=== PATIENT | male | born 1960 | race Two or more races ===

== ENCOUNTER 2022-03-30 15:18 | Inpatient (IN) | payer OTHER ==
[~2022-03-30] VITALS: Ht 190.5 cm; Wt 70.3 kg
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
--- NOTE | 2022-03-30 15:27 | NUR ---
PEOPLE GREETER AT BEDSIDE
[2022-03-30 15:53] LABS: BASOPHILS % (AUTO) 0.2 % (0.0-2.0); EOSINOPHILS % (AUTO) 0.6 % (0.0-6.0); HEMATOCRIT 34 % (39-51); HEMOGLOBIN 11.4 g/dL (13.5-17.5); LYMPHOCYTES # (AUTO) 1.2 K/uL (0.8-4.8); LYMPHOCYTES % (AUTO) 10.8 % (20.0-44.0); MEAN CORPUSCULAR HGB CONC 33 g/dl (31.0-36.0); MEAN CORPUSCULAR VOLUME 85 fL (80-96); MONOCYTES # (AUTO) 1.2 K/uL (0.1-1.30); MONOCYTES % (AUTO) 10.5 % (2.0-12.0); NEUTROPHILS # (AUTO) 8.7 K/uL (1.8-8.9); NEUTROPHILS % (AUTO) 77.9 % (43.0-81.0); PLATELET COUNT (AUTO) 340 K/uL (150-450); RED BLOOD CELL COUNT(AUTO) 4.05 MIL/uL (4.5-6.0); WHITE BLOOD COUNT (AUTO) 11.1 K/uL (4.3-11.0)
[2022-03-30 16:07] LABS: CALCIUM, SERUM 8.3 mg/dL (8.5-10.1); CARBON DIOXIDE 24 mmol/L (21-32); CHLORIDE 102 mmol/L (98-107); CREATININE 0.9 mg/dL (0.6-1.3); GLUCOSE 198 mg/dL (74-106); POTASSIUM 3.7 mmol/L (3.5-5.1); SODIUM SERUM 137 mmol/L (136-145); UREA NITROGEN, BLOOD 14 mg/dL (7-18)
[2022-03-30 16:33] LABS: BILIRUBIN,DIRECT 0.2 mg/dL (0.0-0.2); BILIRUBIN,TOTAL 0.8 mg/dL (0.2-1.0); TOTAL PROTEIN, SERUM 7.5 g/dL (6.4-8.2)
[2022-03-30] MEDS ORDERED: NITR0.4T48 SL (16:57)
[2022-03-30] MEDS ORDERED: CARV12.52 PO (16:57)
[2022-03-30] MEDS ORDERED: ATOR80TA PO (16:57)
[2022-03-30] MEDS ORDERED: TICA90TA PO (16:57)
[2022-03-30] MEDS ORDERED: ASPI-1420 PO (16:57)
--- NOTE | 2022-03-30 16:58 | NUR ---
MOVE SHEET SUBMITTED.
[2022-03-30] MEDS ORDERED: ENOXAPARIN SODIUM 40 MG/0.4 ML DISP.SYRIN SQ ONE ×2 (17:00→17:13)
--- NOTE | 2022-03-30 17:08 | NUR ---
COVID SWAB COLLECTED AND SENT TO LAB
--- NOTE | 2022-03-30 19:32 | NUR ---
RECEIVED THIS 61YO MALE PATIENT AAOX4. CAME WITH CC OF CHEST PAIN. ASSESSMENT DONE. PATIENT IS COMPLAINING OF ABDOMINAL PAIN SCALE OF 10/10. HAS PERIPHERAL LINE ON RIGHT AC G18. PATIENT IS ATTACHED TO MONITOR. VITALS CHECKED.
[2022-03-30] MEDS ORDERED: NITROGLYCERIN 0.4 MG/TAB BOTTLE SL SCH (22:00)
[2022-03-30] MEDS ORDERED: ACETAMINOPHEN 325 MG TABLET PO PRN (22:00)
[2022-03-30] MEDS ORDERED: ONDANSETRON HCL/PF 4 MG/2 ML VIAL IVP PRN (22:00)
[2022-03-30] MEDS ORDERED: MORPHINE SULFATE INJ 2 MG/ML DISP.SYRIN IV PRN (22:00)
[2022-03-30] MEDS ORDERED: ENOXAPARIN SODIUM 30 MG/0.3 ML DISP.SYRIN SQ STA (22:46)
--- NOTE | 2022-03-30 22:49 | NUR ---
REPORT GIVEN TO PETEY MCINTOSHVERONIKA
--- NOTE | 2022-03-30 23:11 | NUR ---
TRANSFERRED PATIENT TO ROOM VIA BED.
[2022-03-30 23:13] VITALS: BP 166/99
[2022-03-30] MEDS ORDERED: IOHEXOL-350 100 ML VIAL IV ONE (23:14)
[2022-03-30 23:30] VITALS: BP 166/99
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
--- NOTE | 2022-03-30 23:50 | NUR ---
ELECTRICAL SYSTEM SPECIALIST NOTES STAVE LOG CUT OFF SAW OPERATOR BY RESEARCH ANALYST,GOING FOR CTA ABDOMEN AND PELVIS WITH CONTRAST,CONSENT SIGNED BY PATIENT HIMSELF.
--- NOTE | 2022-03-31 | NUR ---
ARMOR RECONNAISSANCE SPECIALIST NOTES BACK TO UNIT BY WHEELCHAIR IN STABLE CONDITION.
[2022-03-31] MEDS: ATORVASTATIN 40 MG TABLET PO SCH ×2 (00:04→21:21)
[2022-03-31 05:22] VITALS: BP 136/90
[2022-03-31 05:38] VITALS: BP 136/90
--- NOTE | 2022-03-31 06:46 | NUR ---
MS RN NOTES FAIRLY RESTED AT NIGHT.DENIES CHEST PAIN.NAUSEA.VOMITING IMPROVED.CTA ABDOMEN/PELVIS APPEARS NORMAL..AMBULATE WITH STEADY GAIT.CALL LIGHT IN REACH,NEEDS ATTENDED.
[2022-03-31 07:13] LABS: BASOPHILS % (AUTO) 0.3 % (0.0-2.0); EOSINOPHILS % (AUTO) 0.6 % (0.0-6.0); HEMATOCRIT 36 % (39-51); HEMOGLOBIN 12.1 g/dL (13.5-17.5); LYMPHOCYTES % (AUTO) 18.9 % (20.0-44.0); MEAN CORPUSCULAR HGB CONC 34 g/dl (31.0-36.0); MEAN CORPUSCULAR VOLUME 84 fL (80-96); MONOCYTES # (AUTO) 1.3 K/uL (0.1-1.30); MONOCYTES % (AUTO) 12.3 % (2.0-12.0); NEUTROPHILS % (AUTO) 67.9 % (43.0-81.0); PLATELET COUNT (AUTO) 325 K/uL (150-450); RED BLOOD CELL COUNT(AUTO) 4.28 MIL/uL (4.5-6.0); WHITE BLOOD COUNT (AUTO) 10.4 K/uL (4.3-11.0)
[2022-03-31 07:43] LABS: ALBUMIN 2.8 g/dL (3.4-5.0); CALCIUM, SERUM 8.4 mg/dL (8.5-10.1); CREATININE 0.8 mg/dL (0.6-1.3); MAGNESIUM 2.2 mg/dL (1.8-2.4); PHOSPHORUS 3.2 mg/dL (2.5-4.9); POTASSIUM 3.2 mmol/L (3.5-5.1); TOTAL PROTEIN, SERUM 7.5 g/dL (6.4-8.2)
--- NOTE | 2022-03-31 07:45 | NUR ---
cable television installer opening note patient is alert and oriented x4.patient is estonian speaking but understands few words in bruneian. patient is sinus rhytm. patient has left ac 20 guage. iv patent and flushing well. patient is on room air. all safety measures in place. call light within reach. bed locked at lowest position. side rails up x2. bed alarm on
[2022-03-31 08:00] VITALS: BP 132/96
[2022-03-31] MEDS ORDERED: CARVEDILOL 12.5 MG TABLET PO SCH (09:00)
[2022-03-31] MEDS: ASPIRIN EC 81 MG TABLET.DR PO SCH (09:04)
[2022-03-31] MEDS: POTASSIUM CHLORIDE 20 MEQ TAB.PRT.SR PO SCH ×3 (09:04→11:02)
[2022-03-31] MEDS: CARVEDILOL 12.5 MG TABLET PO SCH ×2 (09:05→17:54)
[2022-03-31] MEDS: ENOXAPARIN SODIUM 80 MG/0.8 ML DISP.SYRIN SQ SCH ×2 (09:12→21:18)
--- NOTE | 2022-03-31 09:29 | NUR ---
EDUCATIONAL THERAPY TEACHER NOTE notified that patient is scheduled lovenox and brilinta. notified that lovenox was given and also if brilinta can be given. said okay to give brilinta and lovenox
[2022-03-31 09:41] LABS: CHOLESTEROL 152 mg/dL (<200); HDL CHOLESTEROL 39 mg/dL (40-60); LDL 95 mg/dL (0-99); TRIGLYCERIDES 121 mg/dL (30-150)
[2022-03-31] MEDS: TICAGRELOR 90 MG TABLET PO SCH ×2 (10:19→16:35)
--- NOTE | 2022-03-31 10:21 | NUR ---
notified and dr. chin that troponin is [id number]
--- NOTE | 2022-03-31 10:21 | NUR ---
noitified dr. robel barnes troponin is [id number]. dr. huston aware and ordered ctca
[2022-03-31] MEDS ORDERED: IOHEXOL-350 100 ML VIAL IV ONE (11:35)
[2022-03-31 12:00] VITALS: BP 126/80
[2022-03-31] MEDS ORDERED: METOPROLOL TARTRATE INJ 5 MG/5 ML AMPUL ONE ×2 (13:25→13:48)
[2022-03-31] MEDS ORDERED: NITROGLYCERIN 0.4 MG/TAB BOTTLE ONE (13:25)
--- NOTE | 2022-03-31 13:25 | NUR ---
RN NOTES (CTA) 1325: PT RECEIVED IN X RAY DEP. PT IS A/Ox4, FRISIAN SPEAKING , ON MONITOR SR HR IN 70'S , VSS STABLE . 1330: CTA STARTED , PT STABLE 14:02 LOW BP NOTED, 81/50 HR STILL IN 70'S , PT IS A/Ox4,FOLLOWS COMMAND , TOTAL OF 25 MG METOPROLOL IV GIVEN , PT STATED FEEL SLIGHTLY DIZZY. CTA STOPPED AT THIS TIME, WILL NOTIFIED .
--- NOTE | 2022-03-31 13:42 | NUR ---
RT EKG done past SVC time because unaware of order. EKG done after returning to dept and seeing order
--- NOTE | 2022-03-31 14:30 | NUR ---
RN NOTES (CTA) BP 104/50 HR IN 70'S , R=20, O2 SAT 99% ,PT DENIES ANY DISTESS AT THIS TIME.
--- NOTE | 2022-03-31 14:39 | NUR ---
RN NOTES (CTA) UNABLE TO COMPLETE CTA DUE TO LOW BP , REPORT GIVEN TO IHSAN ANGELO , CHARGE NURSE .
--- NOTE | 2022-03-31 14:42 | NUR ---
rn note notified that patient went for ct angio. they gave metoprol iv push total of 25 mg iv push, bp dropped to 80/54,hr became 70.patient became dizzy and were not able to perform ctca. asked for new orders or try repeat for tomorrow. said try again tomorrow
[2022-03-31 16:00] VITALS: BP 140/87
--- NOTE | 2022-03-31 18:48 | NUR ---
SAP BUSINESS OBJECTS DEVELOPER CLOSING NOTE PATIENT IS ALERT AND ORIENTED X4. PATIENT IS IRISH SPEAKING ONLY BUT UNDERSTANDS FEW WORDS IN TANZANIAN. PATIENT IS ABLE TO MAKE NEEDS KNOWN AND VERBALLY RESPONSIVE. PATIENT IS ON TELE MONITOR SINUS RHYTM. PATIENT HAS LEFT AC 20 GUAGE. IV PATENT AND FLUSHING WELL. PATIENT IS ON ROOM AIR. ALL SAFETY MEASURES IN PLACE. CALL LIGHT WITHIN REACH. BED LOCKED AT LOWEST POSITION. SIDE RAILS UP X2. BED ALARM ON.
--- NOTE | 2022-03-31 19:30 | NUR ---
noc rn opening note received patient in bed, a/ox4. no s/s of apparent distress on room air and denies any pain. tele monitor reading sr with 77 bpm. l. ac # 18g in saline lock flushing well. re-oriented and encouraged with the use of call light. safety in place. will continue with patient's plan of care.
[2022-03-31 20:15] VITALS: BP 113/77
[2022-04-01 00:11] VITALS: BP 137/87
[2022-04-01 04:00] VITALS: BP 136/68
--- NOTE | 2022-04-01 06:44 | NUR ---
noc rn closing patient in bed with eyes closed, easy to arouse. a/ox4. tele monitor reading sr throughout shift with 78bpm this am. no s/s of apparent distress on room air. denies pain at this time. all needs attended. all scheduled medications administered. safety in place. will endorse to morning shift rn for continuity of patient care.
[2022-04-01 07:47] LABS: BASOPHILS % (AUTO) 0.3 % (0.0-2.0); EOSINOPHILS % (AUTO) 1.2 % (0.0-6.0); HEMATOCRIT 35 % (39-51); HEMOGLOBIN 11.4 g/dL (13.5-17.5); LYMPHOCYTES # (AUTO) 1.7 K/uL (0.8-4.8); LYMPHOCYTES % (AUTO) 16.4 % (20.0-44.0); MEAN CORPUSCULAR HGB CONC 33 g/dl (31.0-36.0); MEAN CORPUSCULAR VOLUME 85 fL (80-96); MONOCYTES # (AUTO) 1.4 K/uL (0.1-1.30); MONOCYTES % (AUTO) 13.4 % (2.0-12.0); NEUTROPHILS # (AUTO) 7.1 K/uL (1.8-8.9); NEUTROPHILS % (AUTO) 68.7 % (43.0-81.0); PLATELET COUNT (AUTO) 352 K/uL (150-450); RED BLOOD CELL COUNT(AUTO) 4.07 MIL/uL (4.5-6.0); WHITE BLOOD COUNT (AUTO) 10.3 K/uL (4.3-11.0)
[2022-04-01 07:50] LABS: ALBUMIN 2.7 g/dL (3.4-5.0); BILIRUBIN,TOTAL 0.8 mg/dL (0.2-1.0); CALCIUM, SERUM 8.4 mg/dL (8.5-10.1); CREATININE 0.9 mg/dL (0.6-1.3); MAGNESIUM 2.5 mg/dL (1.8-2.4); PHOSPHORUS 3.1 mg/dL (2.5-4.9); POTASSIUM 3.6 mmol/L (3.5-5.1); TOTAL PROTEIN, SERUM 7.2 g/dL (6.4-8.2)
[2022-04-01] MEDS: ASPIRIN EC 81 MG TABLET.DR PO SCH (10:59)
[2022-04-01] MEDS: CARVEDILOL 12.5 MG TABLET PO SCH ×2 (10:59→16:21)
[2022-04-01] MEDS: TICAGRELOR 90 MG TABLET PO SCH ×2 (10:59→16:21)
[2022-04-01] MEDS: ENOXAPARIN SODIUM 80 MG/0.8 ML DISP.SYRIN SQ SCH ×2 (11:00→21:34)
--- NOTE | 2022-04-01 18:44 | NUR ---
MEMBERSHIP MANAGER CLOSING NOTE PATIENT RECEIVED IN BED AND AWAKE. REMAINS A/OX4 AND ABLE TO VERBALIZE ALL NEEDS. PATIENT REMAINS ON ROOM AIR WITH NO S/SX OF RESPIRATORY DISTRESS AND DENIED PAIN THROUGHOUT SHIFT. CTCA NOT PERFORMED ON SHIFT. WILL ENDORSE TO ONCOMING NURSE. VITALS STABLE THROUGHOUT SHIFT. TROPONIN LEVELS TRENDING DOWN ON SHIFT. CHARGE NURSE AND MD AWARE. IV ACCESS TO LAC INTACT AND PATENT. TOLERATED ALL MEDICATIONS AND CARE WELL. PATIENT REMAINED COMFORTABLE AND KEPT CLEAN AND DRY. SAFETY MEASURES REMAIN IN PLACE WITH BED LOW AND LOCKED. SIDE-RAIL UPX2 WITH CALL LIGHT, PHONE AND TABLE WITHIN REACH. WILL CONT TO MONITOR.
--- NOTE | 2022-04-01 19:30 | NUR ---
GUEST ASSOCIATE OPENING NOTE RECEIVED PT AWAKE IN BED. A/O X4, YORUBA SPEAKING, ABLE TO MAKE NEEDS KNOWN. PT STABLE ON ROOM AIR. NO SOB OR S/S OF RESPIRATORY DISTRESS. BREATHING EVEN AND UNLABORED. ON EXTERNAL COMPRESSOR OPERATOR READING READING SR 84 BPM. IV ACCESS LAC 18G, INTACT AND PATENT. SAFETY PRECAUTIONS IN PLACE. BED IN LOWEST LOCKED POSITION, HOB ELEVATED, SIDE RAILS UP X2, AND CALL LIGHT AND TABLE WITHIN REACH. ALL NEEDS MET AT THIS TIME.
[2022-04-01 20:00] VITALS: BP 133/87
[2022-04-01] MEDS: ATORVASTATIN 40 MG TABLET PO SCH (21:18)
--- NOTE | 2022-04-02 06:38 | NUR ---
INDUSTRIAL HYGIENE MANAGER CLOSING NOTE PT AWAKE IN BED. A/O X4, BULGARIAN SPEAKING, ABLE TO MAKE NEEDS KNOWN. PT STABLE ON ROOM AIR. NO SOB OR S/S OF RESPIRATORY DISTRESS. BREATHING EVEN AND UNLABORED. ON EXTERNAL TOPSTITCHER ZIGZAG READING READING SR 73 BPM. IV ACCESS LAC 18G, INTACT AND PATENT. ALL DUE MEDS GIVEN ORDERED. SAFETY PRECAUTIONS IN PLACE AT ALL TIMES. BED IN LOWEST LOCKED POSITION, HOB ELEVATED, SIDE RAILS UP X2, AND CALL LIGHT AND TABLE WITHIN REACH. ALL NEEDS MET AT THIS TIME AND WILL ENDORSE TO ONCOMING NURSE FOR HAYDEN.
--- NOTE | 2022-04-02 07:15 | NUR ---
CERTIFIED ENDOSCOPY TECHNICIAN OPENING NOTES: RECEIVED PT IN BED ASLEEP EASILY AROUSED WITH VERBAL STIMULI. NO SOB OR CARDIAC DISTRESS,ON ROOM AIR AND TOLERATING WELL. ON SOFTWARE DEVELOPER MANAGER WITH CURRENT READING SINUS RHYTHM @73BPM. IV ACCESS ON LAC G18 PATENT, INTACT AND SALINE LOCKED. SAFETY PRECAUTIONS MAINTAINED: BED LOCKED AND IN LOWEST POSITION, SIDE RAILS UP X 2, CALL LIGHT IN EASY REACH FOR HELP. WILL MONITOR ACCORDINGLY.
[2022-04-02 08:00] VITALS: BP 144/90
[2022-04-02 08:06] LABS: *SPE A/G RATIO 0.7 (0.7-1.7); *SPE ALPHA-1-GLOBULIN 0.5 g/dL (0.0-0.4); *SPE ALPHA-2-GLOBULIN 1.2 g/dL (0.4-1.0); *SPE BETA GLOBULIN 1.2 g/dL (0.7-1.3); *SPE M-SPIKE Not Observed g/dL (Not Observed)
[2022-04-02 08:37] VITALS: BP 140/90
[2022-04-02] MEDS: CARVEDILOL 12.5 MG TABLET PO SCH (08:37)
[2022-04-02] MEDS: ASPIRIN EC 81 MG TABLET.DR PO SCH (08:37)
[2022-04-02] MEDS: TICAGRELOR 90 MG TABLET PO SCH ×2 (08:38→09:00)
--- NOTE | 2022-04-02 09:00 | NUR ---
RN NOTES: PATIENT TRANSFERRED TO MS FROM TELE. REMOVED ART HISTORIAN AND GAVE TO CONNOR (TECH).
--- NOTE | 2022-04-02 09:31 | NUR ---
RN NOTES: RAJAT VILLARREAL PT POSSIBLE CTCA. CHARGE NURSE MADE AWARE
[2022-04-02] MEDS ORDERED: CARV12.52 PO (10:52)
--- NOTE | 2022-04-02 13:00 | NUR ---
ELECTRIC CUTTER OPERATOR NOTES: PATIENT DC HOME. PICKED UP BY FRIEND LETA. NO SOB OR CARDIAC DISTRESS NOTED. DENIES ANY PAIN AT THIS TIME, DISCHARGE INSTRUCTIONS AND PACKET GIVEN AND VERBALIZED UNDERSTANDING. FOLLOW UP TO CARDIO IN A WEEK AND PCP IN A WEEK. HOME MEDS GIVEN BACK TO PT FROM PHARMACY. BELONGINGS/ INVENTORY LIST SIGNED. ALL BELONGINGS CARRIED WITH THE PATIENT. REMOVED IV ACCESS AND IDENTIFICATION BAND. PATIENT LEFT THE UNIT STABLE.
== END 2022-04-02 13:00 | disposition home or self-care (01) | DRG 190 ==
LOC: ER 15:22 → TELE 22:39
PROVIDERS: ADMIT Internal Medicine; ATTEND Nurse Practitioner Acute Care
DX: I21.4 Non-ST elevation (NSTEMI) myocardial infarction (principal); I50.33 Acute on chronic diastolic (congestive) heart failure; E44.0 Moderate protein-calorie malnutrition; E11.65 Type 2 diabetes mellitus with hyperglycemia; D64.9 Anemia, unspecified; E78.5 Hyperlipidemia, unspecified; E87.6 Hypokalemia; I25.10 Atherosclerotic heart disease of native coronary artery without angina pectoris; Z20.822 Contact with and (suspected) exposure to COVID-19; I11.0 Hypertensive heart disease with heart failure; Z79.82 Long term (current) use of aspirin; Z79.899 Other long term (current) drug therapy; Z95.5 Presence of coronary angioplasty implant and graft; I25.2 Old myocardial infarction; K40.90 Unilateral inguinal hernia, without obstruction or gangrene, not specified as recurrent; K42.9 Umbilical hernia without obstruction or gangrene; K82.8 Other specified diseases of gallbladder; N20.0 Calculus of kidney; Z79.02 Long term (current) use of antithrombotics/antiplatelets
CPT/HCPCS: 36415; 71045-TC; 75574; 80048-TC; 80053-TC; 80061-TC; 80076-TC; 83690-TC; 83735-TC; 83880; 84100-TC; 84155; 84165; 84484-TC; 85025-TC; 87081-TC; 93307-TC; C9803; G0378; J1650; J3490; J7030; Q9967